=== PATIENT | male | born 1990 | race Caucasian/White ===

== ENCOUNTER 2025-06-09 15:15 | Outpatient (CLI) | payer OTHER, SELFPAY ==
--- OUTSIDE RECORDS SUMMARY | 2025-06-09 15:18 | XMS_ITS | Data Portability ---
Author Organization [facility] Address [address] [place] [address] Care Team Providers Care Electronics Inspector Name Role Phone GHAZAL ACKERMAN Primary Care Provider [phone] YADI MCCONNELL Title Inspector YADI HURTS General Surgeon NOLBERTO HURD [employer]at Sander MODESTO FU Supervisor [employer] Assessment Encounter Date Assessment Date Assessment LastModified by Organization Details LastModified Time 06/02/2025 06/02/2025 - 34-year-old ma kasandra with a history of Crohn's disease presenting for a follow-up visit and general checkup. - Metabolic dysfunction-associa summer steatotic liver disease: The patient has a known history of fatty liver disease, requiring periodic monitoring for fibrosis. - Acute low back pain: The patient's back pain has significantly improved, initially suspected to be muscular in origin. - Crohn's disease: The patient experiences significant gastrointestinal symptoms, impacting daily activities and contributing to disability claims. - Hammer toe and foot callus: The patient has structural foot issues causing pain, with surgery as a potential but uncertain solution. - Cellulitis: The patient is at risk for recurrent cellulitis, possibly due to immunosuppression from Crohn's treatment. - Pilonidal disease: The patient suffers from painful cysts and abscesses, affecting comfort and mobility. [email or web address] Not available 06/03/2025 08:47:51 Plan of Treatment Reminders Order Date Submit Date Provider Last Modified By Organization Details Last Modified Time Details Appointments None recorded. Lab hepatitis C liver status biomarker panel, serum 2024 025 [facility], [address] [place] [address], [id number], 04:55:04 CBC w/ auto diff 2024 025 [facility], [address] [place] [address], [address], 19:26:09 CMP, serum or plasma 2024 025 [facility], [address] [place] [address], [address], 19:42:26 TSH, serum or plasma 2024 025 [facility], [address] [place] [address], [address], 19:33:21 lipid panel, serum 2024 025 [facility], [address] [place] [address], [address], 19:42:27 hemoglobin A1C, fingerstick 2024 025 [email or web address] [facility], [address], [address], [place], [address], 08:50:14 Referral None recorded. Procedures None recorded. Surgeries None recorded. Imaging None recorded. Medication Orders rifampin 300 mg capsule 2024 025 [facility] [id number], [address] [place], [address], 05:02:23 amoxicillin 875 mg-potassiu m clavulanate 125 mg tablet 2024 025 [facility] [id number], [address] [place], [address], 05:01:47 rifampin 300 mg capsule 2024 [facility] [id number], [address] [place], [address], 05:02:23 amoxicillin 875 mg-potmiladys m clavulanate 125 mg tablet 2024 025 [facility] [id number], [address] [place], [address], 05:01:47 rifampin 300 mg capsule 2024 025 [facility] [id number], [address] [place], [address], 05:02:23 Patient TargetsNo targets recorded. Patient Instructions Encounter Date Encounter Id Patient Instructions Last Modified By Organization Details Last Modified Time 01/16/2025 [id number] Seen and examine d with Dr. Denys mace Not available 01/16/2025 10:32:42 01/22/2025 [id number] Seen and examine d with Dr. Denys mace Not available 01/22/2025 09:48:54 01/29/2025 [id number] - Continue takin g the prescribed antibiotics as directed. - Rest and avoid strain on the left leg. - Monitor the leg for any changes, such as increased redness, swelling, or warmth. - Contact the clinic if symptoms worsen or do not continue to improve. - Be cautious of frequent urination; this may be due to the antibiotics. - Follow general hygiene practices to prevent further skin infections. [email or web address] Not available 01/29/2025 11:43:13 During the visit , I discussed with the patient that the cellulitis of the left lower limb has shown significant improvement. The patient was advised to continue antibiotic therapy, and a prescription for an additional course of rifampin was provided to ensure complete resolution of the infection. I explained the potential for antibiotics to irritate the bladder, which might contribute to the frequent urge to urinate. We discussed the importance of staying off the affected limb to prevent exacerbation, and the patient acknowledged the need for caution despite work obligations. Follow-up was deemed unnecessary unless symptoms worsen or fail to resolve completely. The patient was advised to monitor for symptoms and contact the clinic if the condition does not improve. [email or web address] Not available 01/29/2025 11:43:13 06/02/2025 [id number] - Follow up with Dr. Clemons for Crohn's disease management. - Monitor for any signs of cellulitis and seek medical attention if symptoms recur. - Manage foot calluses carefully to prevent complications. - Consider dietary adjustments to manage Crohn's and diverticulitis symptoms. - Return for lab work to monitor liver function and metabolic health. [email or web address] Not available 06/02/2025 16:00:19 Yadi is an unfortunate 34-year-old male who has multiple physical problems including Crohn's disease that limits his ability to work. He has to take frequent bathroom breaks and something are very long. He has missed multiple days while he is having a flare of Crohn's. He is actively followed by his bundle cutter Lisa Clemons and under biologic treatment. Because of his biologic treatment that puts him at a risk of infection such as the recent cellulitis that he had on his leg that was quite severe. He also has various aches and pains that can also be debilitating. [email or web address] Not available 06/03/2025 08:49:57 Reason for Referral None Reported. Results Created Date Observation Date Name Description Value Unit Range Abnormal Flag Note LastModifiedBy Organization Detail LastModifiedTime 06/02/2006/02/2025 COMPL ETE BLOOD COUNT white blood cells 10.1 10*3/ uL 3.8-10 .8 normal Not Available [facility] [address] [place], [address], 06/02/2025 19:26:09 06/02/2006/02/2025 COMPL ETE BLOOD COUNT red blood cells 5.78 10*6/ uL 4.20-5 .80 normal Not Available [facility] [address] [place], [address], 06/02/2025 19:26:09 06/02/20 25 06/02/2025 COMPL ETE BLOOD COUNT hemoglobin 18.0 g/dL 14.0-1 8.0 normal Not Available [facility] [address] [place] [address], [address], 06/02/2025 19:26:06/02/2006/02/2025 COMPL ETE BLOOD COUNT hematocrit 51.8 % 40.0-5 2.0 normal Not Available [facility] [address] [place] [address], [address], 06/02/2025 19:26:06/02/20 25 06/02/2025 COMPL ETE BLOOD COUNT MCV 90 fL 80-100 normal Not Available [facility] [address] [place] [address], [address], 06/02/2025 19:26:06/02/2006/02/2025 COMPL ETE BLOOD COUNT MCH 31 pg 26-35 normal Not Available [facility] [address] [place] [address], [address], 06/02/2025 19:26:06/02/2006/02/2025 COMPL ETE BLOOD COUNT MCHC 35 g/dL 32-36 normal Not Available [facility] [address] [place] [address], [address], 06/02/2025 19:26:06/02/2006/02/2025 COMPL ETE BLOOD COUNT RDW 13.4 % 11.0-1 5.0 normal Not Available [facility] [address] [place] [address], [address], 06/02/2025 19:26:06/02/2006/02/2025 COMPL ETE BLOOD COUNT MPV 9.3 fL 6.2-10 .5 normal Not Available [facility] [address] [place] [address], [address], 06/02/2025 19:26:06/02/2006/02/2025 COMPL ETE BLOOD COUNT platelet count 249 10*3/ uL 150-40 0 normal Not Available [facility] [address] [place] [address], [address], 06/02/2025 19:26:06/02/2006/02/2025 COMPL ETE BLOOD COUNT neutrophil,a bsolute 5.8 10*3/ uL 1.6-8. 4 normal Not Available [facility] [address] [place] [address], [address], 06/02/2025 19:26:06/02/2006/02/2025 COMPL ETE BLOOD COUNT lymphocyte,a bsolute 3.3 10*3/ uL 0.4-5. 1 normal Not Available [facility] [address] [place] [address], [address], 06/02/2025 19:26:06/02/2006/02/2025 COMPL ETE BLOOD COUNT monocyte,abs olute 0.7 10*3/ uL 0.0-1. 2 normal Not Available [facility] [address] [place] [address], [address], 06/02/2025 19:26:06/02/2006/02/2025 COMPL ETE BLOOD COUNT eosinophil,a bsolute 0.2 10*3/ uL 0.0-0. 8 normal Not Available [facility] [address] [place] [address], [address], 06/02/2025 19:26:06/02/2006/02/2025 COMPL ETE BLOOD COUNT basophil,abs olute 0.2 10*3/ uL 0.0-0. 3 normal Not Available [facility] [address] [place] [address], [address], 06/02/2025 19:26:06/02/20 25 06/02/2025 COMPL ETE BLOOD COUNT % neutrophils 57.7 % 42.0-7 8.0 normal Not Available [facility] [address] [place] [address], [address], 06/02/2025 19:26:06/02/2006/02/2025 COMPL ETE BLOOD COUNT % lymphocytes 32.2 % 11.0-4 7.0 normal Not Available [facility] [address] [place] [address], [address], 06/02/2025 19:26:06/02/2006/02/2025 COMPL ETE BLOOD COUNT % monocytes 6.8 % 0.0-11 .0 normal Not Available [facility] [address] [place] [address], [address], 06/02/2025 19:26:06/02/2006/02/2025 COMPL ETE BLOOD COUNT % eosinophils 1.7 % 0.0-7. 0 normal Not Available [facility] [address] [place] [address], [address], 06/02/2025 19:26:06/02/2006/02/2025 COMPL ETE BLOOD COUNT % basophils 1.6 % 0.0-3. 0 normal Not Available [facility] [address] [place] [address], [address], 06/02/2025 19:26:06/02/2006/02/2025 COMPL ETE BLOOD COUNT nucleated red cells 0.1 % 0.0-0. 9 normal Not Available [facility] [address] [place] [address], [address], 06/02/2025 19:26:06/02/2006/02/2025 COMPL ETE BLOOD COUNT nucleated RBCs, absolute 0.01 10*3/ uL not estab. normal Not Available [facility] [address] [place] [address], [address], 06/02/2025 19:26:06/02/2006/02/2025 TSH TSH 2.440 u[IU] /mL 0.270- 4.200 normal Not Available [facility] [address] [place] [address], [address], 06/02/2025 19:33:21 06/02/20 25 06/02/2025 COMP. METAB OLIC PANEL glucose 87 mg/dL 74-100 normal Not Available [facility] [address] [place] [address], [address], 06/02/2025 19:42:26 06/02/20 25 06/02/2025 COMP. METAB OLIC PANEL blood urea nitrogen 11 mg/dL 6-20 normal Not Available [facility] [address] [place] [address], [address], 06/02/2025 19:42:26 06/02/20 25 06/02/2025 COMP. METAB OLIC PANEL creatinine 1.11 mg/dL 0.70-1 .20 normal Not Available [facility] [address] [place] [address], [address], 06/02/2025 19:42:26 06/02/20 25 06/02/2025 COMP. METAB OLIC PANEL BUN/creatini ne ratio 10 (calc ) 10-20 normal Not Available [facility] [address] [place] [address], [address], 06/02/2025 19:42:26 06/02/20 25 06/02/2025 COMP. METAB OLIC PANEL sodium 138 mmol/ L 136-14 5 normal Not Available [facility] [address] [place] [address], [address], 06/02/2025 19:42:26 06/02/2006/02/2025 COMP. METAB OLIC PANEL potassium 4.9 mmol/ L 3.4-5. 0 normal Not Available [facility] [address] [place] [address], [address], 06/02/2025 19:42:26 06/02/20 25 06/02/2025 COMP. METAB OLIC PANEL chloride 100 mmol/ L 98-107 normal Not Available [facility] [address] [place] [address], [address], 06/02/2025 19:42:26 06/02/20 25 06/02/2025 COMP. METAB OLIC PANEL carbon dioxide 25 mmol/ L 22-31 normal Not Available [facility] [address] [place] [address], [address], 06/02/2025 19:42:26 06/02/20 25 06/02/2025 COMP. METAB OLIC PANEL anion gap 13 (calc ) 7-25 normal Not Available [facility] [address] [place] [address], [address], 06/02/2025 19:42:26 06/02/20 25 06/02/2025 COMP. METAB OLIC PANEL calcium 10.5 mg/dL 8.6-10 .2 high Not Available [facility] [address] [place] [address], [address], 06/02/2025 19:42:26 06/02/20 25 06/02/2025 COMP. METAB OLIC PANEL total protein 7.8 g/dL 6.4-8. 3 normal Not Available [facility] [address] [place] [address], [address], 06/02/2025 19:42:26 06/02/20 25 06/02/2025 COMP. METAB OLIC PANEL albumin 4.5 g/dL 3.5-5. 2 normal Not Available [facility] [address] [place] [address], [address], 06/02/2025 19:42:26 06/02/20 25 06/02/2025 COMP. METAB OLIC PANEL globulin 3.3 1.5-4. 5 normal Not Available [facility] [address] [place] [address], [address], 06/02/2025 19:42:26 06/02/20 06/02/2025 COMP. METAB OLIC PANEL albumin/glob ulin ratio 1.4 (calc ) 1.1-2. 5 normal Not Available [facility] [address] [place], [address], 06/02/2025 19:42:26 06/02/20 25 06/02/2025 COMP. METAB OLIC PANEL bilirubin, total 0.9 mg/dL 0.1-1. 0 normal NOTE: New refer ence range . Not Available [facility] [address] [place], [address], 06/02/2025 19:42:26 06/02/2006/02/2025 COMP. METAB OLIC PANEL alkaline phosphatase 83 U/L 40-129 normal Not Available [facility] [address] [place], [address], 06/02/2025 19:42:26 06/02/2006/02/2025 COMP. METAB OLIC PANEL AST 57 U/L 0-40 high Not Available [facility] [address] [place], [address], 06/02/2025 19:42:26 06/02/20 25 06/02/2025 COMP. METAB OLIC PANEL ALT 88 U/L 0-41 high Not Available [facility] [address] [place], [address], 06/02/2025 19:42:26 06/02/2006/02/2025 COMP. METAB OLIC PANEL eGFR 89 >= 60 normal NOT E New calcu latio n for GFR (CKD- EPI 2020) is formu lated witho ut race adjus tment facto rs at the recom menda tion of the Renae Blair y Rupinder leal and Trisha Pascual ty of Nephr ology . This calcu latio n has not been valid ated in pregn ant women . For pedia azalia moraese nts refer to https ://dwain rock.o rg/pr ofess ional s/KDO QI/gf r_cal culat orPed Not Available [facility] [address] [place], [address], 06/02/2025 19:42:26 06/02/20 25 06/02/2025 LIPID PROFI LE HDL cholesterol 35 mg/dL low VINNIE L RANGE FEMAL E >49 MALE >39 NOTE: NEW VINNIE L RANGE Not Available [facility] [address] [place], [address], 06/02/2025 19:42:27 06/02/20 25 06/02/2025 LIPID PROFI LE triglyceride s 438 mg/dL 0-149 high TRIGL YCERI DE RANGE S VINNIE L: < 150 BORDE RLINE HIGH: 150 - 199 HIGH: 200 - 499 VERY HIGH: > OR = 500 Not Available [facility] [address] [place], [address], 06/02/2025 19:42:27 06/02/20 25 06/02/2025 LIPID PROFI LE cholesterol 223 mg/dL 0-199 high SHABBIR STERO L (TOTA L) RANGE S FREDY ABLE: < 200 BORDE RLINE : 200 - 239 HIGHE R RISK: > 239 Not Available [facility] [address] [place], [address], 06/02/2025 19:42:27 06/02/20 25 06/02/2025 LIPID PROFI LE LDL cholesterol - mg/dL _(ashlie c) 0-99 abnormal Trigl yceri de resul t is > 400. LDL canno t be calcu lated . LDL SHABBIR STERO L RANGE S OPTIM AL: < 100 NEAR/ ABOVE OPTIM AL: 100 - 129 BORDE RLINE HIGH: 130 - 159 HIGH: 160 - 189 VERY HIGH: > OR = 190 Not Available [facility] [address] [place], [address], 06/02/2025 19:42:27 06/02/20 25 06/02/2025 LIPID PROFI LE chol/HDL ratio (calc) 6.4 mg/dL normal NO VINNIE L RANGE ESTAB LISHE D FOR SHABBIR STERO L/HDL RATIO (CALC ULATE D). Not Available [facility] [address] [place], [address], 06/02/2025 19:42:27 06/02/20 25 06/02/2025 LIPID PROFI LE LDL, direct 137 0-99 high Not Available [facility] [address] [place], [address], 06/02/2025 19:42:27 06/02/20 25 06/03/2025 ALEXANDER FIBRO SURE alexander fibrosis score -2.604 normal Not Available [facility] [address] [place], [address], 06/03/2025 10:54:07 06/02/20 25 06/03/2025 ALEXANDER FIBRO SURE interpretati on SEE NOTE normal NAFLD Fibro sis Score less than -1.45 5: Consi stent with the absen ce of signi fican t fibro sis. Refer ence: Johana georges P, Jonelle JM, November afsaneh G, Gibson telles E, Espinoza mccoy J, Philip goins GC, Ozzie s F, Sakse na S, Ace DA, et al. The NAFLD fibro sis score : a nonin vasiv e syste m that ident ifies liver fibro sis in patie nts with NAFLD . HEPAT OLOGY 2007; 45:84 6-854 . If fasti ng condi tions were not met, use cauti on when inter preti ng the gluco se test resul t and the NAFLD Fibro sis Score . Not Available [facility] [address] [place], [address], 06/03/2025 10:54:07 06/02/20 25 06/03/2025 ALEXANDER FIBRO SURE glucose 87 mg/dL 65-99 normal Fasti ng refer ence inter mary Not Available [facility] [address] [place], [address], 06/03/2025 10:54:07 06/02/20 25 06/03/2025 ALEXANDER FIBRO SURE AST 51 U/L 10-40 high Not Available [facility] [address] [place] [address], [address], 06/03/2025 10:54:07 06/02/20 25 06/03/2025 ALEXANDER FIBRO SURE ALT 79 U/L 9-46 high Not Available [facility] [address] [place] [address], [address], 06/03/2025 10:54:07 06/02/20 25 06/03/2025 ALEXANDER FIBRO SURE platelet count 276 thous and/u L 140-40 0 normal Not Available [facility] [address] [place] [address], [address], 06/03/2025 10:54:07 06/02/20 25 06/03/2025 ALEXANDER FIBRO SURE albumin 4.8 g/dL 3.6-5. 1 normal Not Available [facility] [address] [place] [address], [address], 06/03/2025 10:54:07 06/02/20 25 06/03/2025 ALEXANDER FIBRO SURE calculated BMI 42.2 normal Not Available [facility] [address] [place], [address], 06/03/2025 10:54:07 06/02/20 25 06/02/2025 hemog lobin A1C, finge rstic k hemoglobin A1C % 5.3 4.0 - 5.6 Not Available [address], [place], [address], 06/02/2025 15:13:21 01/15/20 25 01/14/2025 US, chaparro x, ariana s, [facility] mity, unila teral No observ ation record ed. [facility] [address] [place] [address] , [place], [address], 01/14/2025 13:47:40 Result Notes None recorded. Problems Name Problem SNOMED Code Status Onset Date Resolution Date Notes Provider Name and Address Organization Details Recorded Time Crohn's disease of large bowel 3504075 Active 2014 From [employer];Pro vider: Edmar Clemons;Sta tus: Active SANDRA ACKERMAN MD [address] [place] [address], [address] , [facility] 5 15:44:17 Liver function tests outside referenc e range 650902103 Active 2014 From [employer];Pro vider: Edmar Clemons;Sta tus: Active Not Available [facility] 6 04:59:02 Metaboli c dysfunct ion-asso ciated steatohe patitis 222817922 Active 2014 From [employer];Pro vider: Edmar Clemons;Sta tus: Active SANDRA ACKERMAN MD [address] [place] [address], [address] , [facility] 5 15:44:24 Pharyngi tis 113285318 Completed 201403/17/2019 From [employer];Pro vider: Yair Matson;Statu s: Active SANDRA ACKERMAN MD [address] [place] [address], [address] , [facility] 9 10:04:33 Single major depressi ve episode, moderate Active 2015 From [employer];Pro vider: Yair Matson.;Statu s: Active Not Available [facility] 6 04:59:38 Disorder of penis 72481693 Completed 201503/17/2019 From [employer];Pro vider: Yair Matson.;Statu s: Active SANDRA ACKERMAN MD [address] [place] [address], [address] , [facility] 9 10:04:31 Crohn's disease of small intestin e 35009870 Active 2015 From [employer];Pro vider: Edmar Clemons;Sta tus: Active SANDRA ACKERMAN MD [address] [place] [address], [address] , [facility] 15:44:10 Male pattern alopecia 05788103 Active 2024 Vianey degroot, [facility] 5 09:56:16 Notes:: Depression Screening* Date:01/17/2016 Problem Notes Documentation Provider Name and Address Organization Details Recorded Time First [employer] Sander Consult Note : [facility] [address] [facility] [address]NEJX, Michael (id #[id number], : 1990) [facility] [address] [place] [address] Date: 02/06/2025RE: Yadi Hickey, : 1990, PT ID #[id number] Ackerman MD, I would like to thank you for referring Yadi Hickey to our practice for consultation and evaluation. I have enclosed a copy of the office evaluation for your records. Sincerely, Electronically Signed by: DAMION GARDNER PA-C, Kathleen Reason/DateNone recorded 02/04/2025 - 09:30AM - [facility] History of Present IllnessPatient is here to follow up on telogen effluvium Duration: MonthsTx tried: No medications taken in the pastReports:- Patient wants to see his options for treatment- Previous note states that Discussed SE of decr libido/mood in ~10%. in regards to finasteride- Patient reports he doesn't want to take a medication that dec libidoReview of SystemsROS as noted in the HPIPhysical ExamConstitutional: Patient is in no apparent distress and appears in good general health Neurological: Alert and oriented to person, place, and time Psychiatric: Pleasant and cooperative Skin exam was performed in only the following areas: scalp The areas examined include: Thinning of vertex scalp hairProcedure DocumentationNone recordedAssessment/Plan1.Ot her androgenic alopeciaPt first noticed hair lossStarted Humira ~ 10yrs ago, unsure if this is relatedPrior labs showed low Vit D, has been taking a Vit D supplementPt prefers to h/o on on finasteride d/t SE's of decreased libido Discussed genetic component to hair loss. Discussed that there aren't great treatments for this. Recommended starting minoxidil 5% (Rogaine) BID to scalp. Discussed that Rogaine must be consistently used to maintain results, and if stopped, hair loss will revert to as if it hadn't been used. Must take for 6-12 months for results to show.Follow up in 6moL64.8: Other androgenic alopecia Return to Office to see NOLBERTO FERGUSON MD at [facility] on or around 08/06/2025 SANDRA ACKERMAN MD [address] [place] [address], [address], [facility] 02/06/2025 13:31:21 Procedures Surgical History Date Name Laterality Status Provider Name and Address Organization Details Recorded Time Colonoscopy completed Sabrina Peter [facility] 02/20/2017 15:44:08 excision of cyst completed Dezjack Prince [facility] 02/04/2025 09:31:13 Imaging Results None recorded. Procedure Notes None recorded. Medical Equipment None Reported. Allergies Allergen ID Allergen Name Allergen Category Reaction Reaction Severity Criticality Documentation Date Start Date Code Code System Note Provider Name and Address Organization Details Recorded Time 394525 Advil medicatio n other Not available Not available 07/28/20162014 90582 0 RxNorm React ion: BLIST ER OF SKIN; Comme nt: Creat ed By: Carmencita wheeler Date: 015 10:50 :49 AM; Not Available [employer] 6 10:02:09 891134 ibuprofen medicatio n Not available Not available Not available 08/15/2024 5640 Rx[facility] 4 10:20:36 Medications Name Sig Start Date Stop Date Status Note LastModified by Organization Details LastModified Time doxycycli ne hyclate 100 mg capsule Take 1 capsule twice a day by oral route for 14 days. 10/20 completed Not Available Not Available Not Available Keflex 500 mg capsule Take 1 capsule every 8 hours by oral route for 10 days. 03/17 completed Not Available Not Available Not Available Pyridium 100 mg tablet Take 1 tablet 3 times a day by oral route. 03/25 completed Not Available Not Available Not Available ciproflox acin 500 mg tablet Take 1 tablet every 12 hours by oral route for 21 days. 12/14 completed Not Available Not Available Not Available rifampin 300 mg capsule Take 1 capsule 3 times a day by oral route for 10 days. 02/02 completed Not Available Not Available Not Available amoxicill in 875 mg tablet Two times a day 02/20 completed Not Available Not Available Not Available hyoscyami ne ER 0.375 mg tablet,ex tended release,1 2 hr Take 1 tablet every 12 hours by oral route. 2023 active Not Available Not Available Not Avai lable dicyclomi ne 20 mg tablet TAKE ONE TABLET BY MOUTH FOUR TIMES A DAY BEFORE MEALS 03/17 completed Not Available Not Available Not Available neomycin- polymyxin -dexameth 3.5 mg/mL-10, 000 unit/mL-0 .1% eye drops one drop left eye 4 times a day for 2 weeks 10/20 completed Not Available Not Available Not Available mercaptop urine 50 mg tablet Daily 03/17 completed Not Available Not Available Not Available clobetaso l 0.05 % topical ointment APPLY A THIN LAYER TO THE AFFECTED AREA(S) BY TOPICAL ROUTE 2 TIMES PER DAY FOR 2 WEEKS 2023 active Not Available Not Available Not Avai lable Zoloft 100 mg tablet Daily 02/20 completed Not Available Not Available Not Available vitamin E 268 mg (400 unit) capsule Daily 03/25 completed Not Available Not Available Not Available amoxicill in 875 mg-potass ium clavulana te 125 mg tablet Take 1 tablet every 12 hours by oral route for 7 days. 02/12 completed Not Available Not Available Not Available tobramyci n 0.3 %-dexamet hasone 0.1 % eye drops,andrae pension one drop left eye 4 times a day for 14 days 02/02 completed Not Available Not Available Not Available oxycodone 5 mg tablet Take 1 tablet every 4 hours by oral route as needed. 01/13 completed Not Available Not Available Not Available Bactrim DS 800 mg-160 mg tablet Take 1 tablet every 12 hours by oral route for 5 days. 01/13 completed Not Available Not Available Not Available Humira 40 mg/0.8 mL subcutane ous syringe kit Inject 0.8 ml under the skin once every 14 days as directed for Crohns active Not Available Not Available No t Available bupropion HCl XL 300 mg 24 hr tablet, extended release Take 1 tablet every day by oral route. 03/24 completed Not Available Not Available Not Available bupropion HCl XL 150 mg 24 hr tablet, extended release Take 1 tablet every day by oral route. 03/24 completed Not Available Not Available Not Available rifampin 06/02 completed Not Available Not Available Not Available Humira Pen 40 mg/0.8 mL subcutane ous kit Inject by subcutan eous route for 28 days. active Not Available Not Available No t Available Zofran (base) As needed 03/17 completed Frequenc y: prn;Medi cation Descript ion: ondanset jimmy; Dosage:a s directed ; refills: 0 Not Available Not Available Not Available Humira(CF ) Pen 40 mg/0.4 mL subcutane ous kit Inject 0.4 ml under the skin once every 14 days as directed 09/15 completed PA approved for 40 mg/0.8 ml Not Available Not Available Not Available Humira(CF ) Pen 80 mg/0.8 mL subcutane ous kit Inject 0.8 ml under the skin once every x14 days as directed for Crohn's 09/17 completed PA approval letter on file Not Available Not Available Not Available Senna Plus 8.6 mg-50 mg capsule Take 1 capsule every day by oral route for 7 days. 01/13 completed Not Available Not Available Not Available Amjevita( CF) 40 mg/0.8 mL subcutane ous syringe Inject 0.8 ml under the skin once every 14 days as directed 09/22 completed Humira PA was approved , but [employer] stated not covered and must change to Amjevita intercha ngeable. Then stated Pen not covered, need syringes . Syringes order given and now request for change to 40 mg/0.4 ml. Not Available Not Available Not Available Amjevita( CF) Autoinjec tor 40 mg/0.8 mL subcutane ous auto-inje ctor Inject 0.8 ml under the skin by subcutan eous route once every 14 days, as directed 09/19 completed Humira PA was approved , but [employer] stated not covered and must change to Amjevita intercha ngeable. Then stated Pen not covered, need syringes . Injectio n delayed. Not Available Not Available Not Available Amjevita( CF) 20 mg/0.4 mL subcutane ous syringe Inject 0.4 ml under the skin once every 14 days as directed 01/13 completed Not Available Not Available Not Available Amjevita( CF) 40 mg/0.4 mL subcutane ous syringe Inject 0.4 mL every 2 weeks by subcutan eous route for 28 days. active VO called to Ketty garcia, pharmJohn Cooper per their request. x11 RF's. Not Available Not Available Not Available Vitals Date Recorded Body height Body mass index (BMI) Body weight Body temperature Heart rate Oxygen saturation Oxygen saturation in Arterial blood by Pulse oximetry Systolic And Diastolic Provider Name and Address Organization Details Last Updated DateTime 5 200.66 cm 41.1 kg/m2 467081. 22 g 97.7 [degF] 78 /min 95 % 95 % 130/80 mm[Hg] Martha Morel [facility] 5 10:19:45 Date Recorded Body height Body mass index (BMI) Body weight Heart rate Oxygen saturation Oxygen saturation in Arterial blood by Pulse oximetry Body temperature Systolic And Diastolic Provider Name and Address Organization Details Last Updated DateTime 5 200.66 cm 40.8 kg/m2 568563. 44 g 80 /min 98 % 98 % 98.4 [degF] 124/82 mm[Hg] Andreina Rodriguez [facility] 5 09:35:31 Date Recorded Body height Body mass index (BMI) Body weight Body temperature Heart rate Oxygen saturation Oxygen saturation in Arterial blood by Pulse oximetry Systolic And Diastolic Provider Name and Address Organization Details Last Updated DateTime 5 200.66 cm 40.9 kg/m2 459300. 73 g 97.9 [degF] 93 /min 96 % 96 % 110/70 mm[Hg] Martha Maria Teresa [facility] 5 11:18:17 Date Recorded Body height Body mass index (BMI) Body weight Body temperature Oxygen saturation Oxygen saturation in Arterial blood by Pulse oximetry Heart rate Systolic And Diastolic Provider Name and Address Organization Details Last Updated DateTime 5 200.66 cm 42.2 kg/m2 515762. 14 g 98 [degF] 96 % 96 % 94 /min 143/75 mm[Hg] Herlinda Molina [facility] 5 15:11:03 Social History Question Answer Notes LastModified by Organizat ion Details LastModified Time Tobacco Smoking Status Current Every [facility] 02/20/2017 15:43:29 How Much Tobacco Do You Chew? None Information not available 03/17/2019 What Was The Date Of Your Most Recent Tobacco Screening? 10/20/2022 [email or web address] Information not available 10/20/2022 What Is Your Current Pack Years? 10-19packyea rs Information not available 10/23/2022 At What Age Did You Start Smoking Tobacco? 15 Information not available 02/20/2017 Are You Passively Exposed To Smoke? Yes Information not available 02/20/2017 How Much Tobacco Do You Smoke? 1 PPD Information not available 11/24/2022 Has Tobacco Cessation Counseling Been Provided? Yes [email or web address] Information not available 03/17/2019 On What Date Was Tobacco Cessation Counseling Provided? 10/20/2022 Information not available 10/20/2022 How Many Years Have You Smoked Tobacco? 17 Information not available 10/23/2022 Sex: Male Functional Status Question Answer Note LastModified by Organizat ion Details LastModified Time Do you or have you ever used smokeless tobacco? Never used smokeless tobacco Information not available 07/23/2019 Do you or have you ever used e-cigarettes or vape? Never used electronic cigarettes Information not available 07/23/2019 Mental Status None recorded. Family History Relationship Description Onset Age of this Age Resolved Age Notes LastModified by Organization Details LastModified Time Unspecified Relation Dementia [email or web address] Not available 2016 15:42:50 Father Heart disease [email or web address] Not available 2022 09:13:30 Father Hypercholest erolemia [email or web address] Not available 2016 15:43:09 Father Hypertensive disorder [email or web address] Not available 2016 15:43:16 Father Diabetes mellitus [email or web address] Not available 2022 09:13:18 Father Kidney stone Not availa ble 11/24/2022 09:13:52 Medical History Condition Response Autoimmune disease Y Skin Cancer N Allergies/Hayfever Y GI Problems Y Past Encounters Encounter ID Performer Location Encounter Start Date Encounter Closed Date Diagnosis/Indication Diagnosis SNOMED-CT Code Diagnosis ICD10 Code Diagnosis IMO Codes Diagnosis Note [id number] SANDRA ACKERMAN MD [facility] [address] [place] [address] 02/20/2017 14:42:59 02/20/2017 16:23:57 Crohn's disease of small intestine 35748613 K50.00 continue humira Hidradenit is suppurativa 32902738 L73.2 Obesity 153092123 E66.9 [id number] SANDRA ACKERMAN MD [facility] [address] [address] 03/17/2019 09:28:27 03/17/2019 11:03:05 Body mass index 30+ - obesity 795989925 Z68.34 Venereal d isease screening 580574287 Z11.3 discussed that even with normal exam recommend STD testing. [id number] SANDRA ACKERMAN MD [place] [address] [address] 07/23/2019 10:25:03 07/23/2019 11:35:39 Body mass index 30+ - obesity 885225174 Z68.36 Acute prostatitis 948298 02 N41.0 likely dx will treat with 3 weeks with cipro. Will reassess in 3 weeks if not better. Sooner if needed. [id number] SANDRA ACKERMAN MD [place] [address] [address] 03/25/2020 10:01:23 03/25/2020 12:32:17 Crohn's disease of small intestine 27995979 K50.00 continue humira Follow up with his GI [id number] SANDRA ACKERMAN MD [place] [address] [address] 08/31/2020 15:48:13 09/01/2020 14:51:09 Chalazion of lower eyelid 650380980 H00.19 Left lower lid [id number] YADI MCCONNELL MD [facility] [address] [address] 09/17/2020 10:57:11 09/17/2020 17:01:38 Meibomian gland dysfunction 691840181 H02.889 rec docycyclin e 100mg bid x 14 days rec tdex qid x 14 days hot compresses bid-qid if not better in 2-3 weeks rtc for injection vs i/d [id number] YADI MCCONNELL MD [facility] [address] [address] 02/02/2022 08:11:30 02/02/2022 10:20:13 Internal hordeolum 611235143 H00.029 doxycyclin e 100mg bid x 14 daysnpd qid os x 14 dayshot compresses qid [id number] SANDRA ACKERMAN MD [place] [address] [place] [address] 10/20/2022 08:43:31 10/20/2022 09:20:50 Acute prostatitis 93567973 N41.0 likely dx will treat with 3 weeks with cipro. Will reassess in 3 weeks if not better. Sooner if needed. Bereavement 66486548 Z63 .4 He has significan t bereavemen t over his father. He has had a long-term low-grade depression that he has declined treatment for. He has agreed to seek bereavemen t counseling through hospice. We have provided him with the informatio n to make that appointmen t Hammer toe 453999897 M20 .42 M20.41 Will refer to podiatry, I wonder if he is developing neuropathy . Podiatry consult should help us with this. Adult [facility] th examination 355570384 Z00.00 He needs routine lab work. [id number] SANDRA ACKERMAN MD [facility] [address] [place], [place] [address] 11/17/2022 09:49:58 11/17/2022 11:16:29 Acute prostatitis 17213824 N41.0 likely dx will treat with 3 weeks with cipro. Finish abx Bereavement 06038338 Z63 .4 He has been improved but not well. He has no side effects. Liver enzy mes level above reference range 094140668 R74.01 advised reduce ETOHNow down to 4 drinks a week 2-3 shots 4 times a week Abscess of skin and/or subcutaneous tissue 10926136 L02.91 Left buttock , draining on abxSine he has crohns needs to see surgeon to assess for fistula [id number] YADI HURST MD [facility] [address] [place] [address] 11/24/2022 08:51:17 11/27/2022 16:20:41 Abscess of buttock 46132547 L02.31 [id number] SANDRA ACKERMAN MD [facility] [address],[place] [address] 03/24/2024 11:19:22 03/24/2024 12:27:47 Crohn's disease 26463086 K50.90 He has need for a new gi docHe has recurrent diarrheaI did fmla forms for him.She has no weight loss.He has been on humrira Hidradenit is suppurativa 51066876 L73.2 Will treat as below [id number] NOLBERTO FERGUSON MD [place] [address] [place] [address] 04/01/2024 07:58:26 04/01/2024 12:02:10 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 Will r/o vitamin def/TE in the setting of Crohn's disease.- Labs to be checked as below- Start finasterid e 1mg QD if all screening labs for TE WNL. Discussed SE of decr libido/moo d in ~10%. F/Up 6 mo [id number] MODESTO FU MD [facility] [address] [facility] [address] [place] [address] 08/06/2024 13:32:26 08/06/2024 14:18:40 Crohn's disease of large bowel 8275606 K50.10 humira used to be on 6mplevsin helps with day to day symptoms Crohn's di sease of small intestine 73771706 K50.00 Liver func tion tests outside reference range 344695739 R94.5 Metabolic dysfunction-associate d steatohepatitis 513007589 K75.81 History of intestinal infection caused by Clostridioides difficile 8924410782 89710 Z86.19 [id number] YADI HURST MD [facility] [address] [place] [address] 08/15/2024 10:12:21 08/20/2024 12:38:32 Anal fistula 251781400 K60.312 Pilonidal disease 862290 009 L98.8 [id number] YADI HURST MD [facility] [address] [place] [address] 10/06/2024 10:11:00 10/06/2024 10:13:37 Postoperative pain 126889855 G89.18 [id number] YADI HURST MD [facility] [address] [address] 10/24/2024 08:37:00 10/28/2024 12:25:01 Pilonidal disease 730896932 L98.8 [id number] YADI HURST MD [facility] [address] [address] 11/28/2024 08:47:05 11/30/2024 09:28:37 Pilonidal disease 231845993 L98.8 [id number] SANDRA ACKERMAN MD [facility] [address] [address] 01/13/2025 08:36:23 01/13/2025 10:04:43 Cellulitis of left lower limb 4747734294 0309600 L03.129 [id number] Advised pt to take antibiotic with food. Will schedule follow up for Sunday to recheck progressio n of treatment. Advised patient to follow up sooner if symptoms worsen. Will further investigat e with US to rule out DVT. [id number] SANDRA ACKERMAN MD [facility] [address] [facility] [place] [address] 01/16/2025 09:32:11 01/16/2025 10:52:02 Cellulitis of left lower limb 5325648218 5927213 L03.933 2210369 Mildly improved appearance of leg at today's visit. No worsening redness, swelling, warmth, or spread. Advised pt to continue taking antibiotic with food. Will add rifampin to treatment plan at this time. Advised pt that rifampin may give a red tint to bodily fluids. Advised pt elevate leg. Recommend following up with patient in one week to check progressio n. [id number] SANDRA ACKERMAN MD [facility] [address] [place] [address] 01/22/2025 09:30:42 01/22/2025 10:06:03 Cellulitis of left lower limb 7042518924 5985834 L03.039 1290376 Significan tly less swelling and warmth of left leg, redness has lessened as well. No spread above the knee. Advised pt to continue taking antibiotic with food. Will extend both courses of antibiotic s by another 10 days. Advised pt elevate leg as much as possible. Recommende d NSAIDs to help with pain. [id number] SANDRA ACKERMAN MD [address] [place], [place] [address] 01/29/2025 10:30:20 01/29/2025 11:42:39 Cellulitis of left lower limb 5095405466 6212847 L03.448 3139094 - Continue antibiotic therapy with amoxicilli n and commence rifampin to ensure complete resolution .- Monitor for further improvemen t, with expectatio ns for continued reduction in swelling and erythema.- Instructed the patient to avoid excessive physical activity to prevent aggravatio n.- Advised to observe for any new symptoms or lack of improvemen t, which may necessitat e further medical evaluation . 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 Discussed that there aren't great treatments for this. Recommende d starting minoxidil 5% (Rogaine) BID to scalp. Discussed that Rogaine must be consistent ly used to maintain results, and if stopped, hair loss will revert to as if it hadn't been used. Must take for 6-12 months for results to show.Follo w up in 6mo [id number] SANDRA ACKERMAN MD [facility] [address] [place] [address] 06/02/2025 14:31:55 06/02/2025 15:59:02 Metabolic dysfunction-associate d steatotic liver disease 2862453142 K76.0 [id number] - Plan to conduct a FibroSure test to screen for liver fibrosis. - Monitor liver function and metabolic profile regularly. Adult heal th examination 163384588 Z00.00 [id number] He needs routine lab work. Acute low back pain 2788 21303 M54.50 48888212 - No specific interventi on required as the pain has eased significan tly. Crohn's di sease of small intestine 85289341 K50.00 - Follow-up with Dr. Clemons for ongoing management of Crohn's disease.- Address dietary management challenges due to conflictin g needs of Crohn's and diverticul itis. Hammer toe 093742627 M20 .41 M20.42 01889861 - Consider surgical interventi on as discussed with environmental compliance specialist , though outcomes are uncertain. Foot callus 284566390 L8 4 471973 - Manage calluses carefully to prevent ulceration . History of cellulitis 47 0869433 Z87.2 [id number] He is currently without signs and symptoms of cellulitis in the legs. We discussed the need to monitor for this. History of skin disorder 924725331 Z87.2 [id number] He is currently without signs and symptoms of pilonidal disease. We discussed that these can be recurrent Health Concerns Section Related Observation LastModified by Organization Detai ls LastModified Time None Recorded Concern Status LastModified by Organization Details LastModified Time None Recorded Advance Directives Directive None Recorded Payers Insurance Date Sequence Insurance Name Policy Number Policy Lopez Covered Member ID Lopez Member ID Guarantor Name 06/04/2025 1 [employer] [id number] Yadi Hickey [id number] Yadi Hickey 11/19/2020 GENERIC INSURANCE - MOVED-HOLD Yadi Hickey 02/20/2017 1 *SELF PAY* Lali Hickey 11/19/2020 1 [employer] - [employer] [place] (MEDICAID REPLACEMENT - HMO) [place] Yadi Hickey [id number] Yadi Hickey Notes Date Note Type Note Provider Name and Address Organization Details Recorded Time 01/16/2025 text/html Pt is here for follow up of cellulitis. He states the pain is about the same, but that the swelling gone down. He denies fever, chills, nausea, vomiting. He denies any side effects from the augmentin other than some mild constipation. He reports the area is irritated by use of his work boot and notices an increase in ankle swelling but denies any other worsening in symptoms. MD [place], [address], [facility] 01/19/2025 07:55:35 01/22/2025 text/html Pt is here today for follow up on cellulitis of the left leg. He has been on augmentin x 9 days and rifampin x 5 days. He reports side effects of dizziness, urinary urgency, change in urine and stool color. He is still having the same level of pain btk on the left. He denies fever, chills, spread of redness, pain elsewhere. SANDRA ACKERMAN MD [facility] [place], [address], [facility] 01/29/2025 11:36:41 01/29/2025 text/html - The patient is a 34-year-old male presenting with cellulitis follow-up. - Initially diagnosed with cellulitis of the left lower limb. - The patient reports the condition has improved significantly since the last visit. - Symptoms initially included erythema, tenderness, swelling, and warmth in the affected area. - The patient reports the skin is peeling like a sunburn, and the area is less erythematous with reduced swelling. - Initially prescribed amoxicillin; the patient completed nearly the full course. - Reports mild itchiness, tenderness, and soreness in the affected area. - No additional medical history, family history, or social history impacting the cellulitis is provided. SANDRA ACKERMAN MD [facility] [place], [address], [facility] 01/29/2025 15:41:57 02/04/2025 text/html ROS as noted in the HPI Patient is here to follow up on telogen effluvium Duration: MonthsTx tried: No medications taken in the pastReports:- Patient wants to see his options for treatment- Previous note states that Discussed SE of decr libido/mood in ~10%. in regards to finasteride- Patient reports he doesn't want to take a medication that dec libido DAMION GARDNER PA-C [address] [place], [address], [facility] 02/06/2025 10:53:24 06/02/2025 text/html - The patient is a 34-year-old male presenting for a follow-up visit and general checkup. - Acute low back pain: The patient experienced back pain a few weeks ago, initially thought to be a pulled muscle, which was sore for several weeks. - The pain was localized to the mid-back and has since eased significantly. - Crohn's disease: The patient has a history of Crohn's disease and is scheduled to see Dr. Clemons for follow-up. - The patient experiences abdominal pain and frequent bowel movements, sometimes lasting up to an hour. - Hammer toe and foot issues: The patient has hammer toes and high arches, causing stinging pain after a few hours of activity. - The patient has seen a environmental compliance specialist who suggested surgery as a potential solution, though not guaranteed. - Foot callus: The patient has preulcerative calluses on both great toes, requiring careful management. - Cellulitis: The patient has a history of cellulitis, which may recur due to a weakened immune system from Crohn's medication. - Pilonidal disease: The patient experiences painful cysts and abscesses, making sitting difficult. Documentation on this patient encounter was supported using voice-enabled Al technology. The patient consented to recording for the purpose of documenting the encounter. Provider reviewed content of the generated note prior to signature. SANDRA ACKERMAN MD [address] [place], [address], [facility] 06/03/2025 08:50:19
--- OUTSIDE RECORDS SUMMARY | 2025-06-09 15:18 | XMS_ITS | Continuity of Care Document ---
Author Organization SARAY Carl Manriquez c, [facility] Address [address] [place] [address] Care Team Providers Care Instrument Adjuster Name Role Phone GHAZAL ACKERMAN Primary Care Provider [phone] YADI MCCONNELL Admitting Manager YADI HURST General Surgeon O NOLBERTO FERGUSON Electrical Logging Engineer MODESTO FU Histology Tech [phone] Assessment Encounter Date Assessment Date Assessment LastModified [...] cysts and abscesses, affecting comfort and mobility. Not available 06/03/2025 08:47:51 Plan of Treatment Reminders Order Date Submit Date Provider Last Modified By Organization Details Last Modified Time Details Appointments None recorded. Lab hepatitis C liver status biomarker panel, serum 2024 025 [facility], [address] [place] [address], [id number], 04:55:04 CBC w/ auto diff 2024 025 [facility], [address] [place] [address], [id number], 19:26:09 CMP, serum or plasma 2024 025 [facility], [address] [place] [address], [id number], 19:42:26 TSH, serum or plasma 2024 025 [facility], [address] [place] [address], [address], 19:33:21 lipid panel, serum 2024 025 [facility], [address] [place] [address], [id number], 19:42:27 hemoglobin A1C, fingerstick 2024 025 [email or web address] [facility], [address] [place] [address] Dr, [address], [place], [address], 08:50:14 Referral None recorded. Procedures None recorded. Surgeries None recorded. Imaging None recorded. Medication Orders None recorded. Patient TargetsNo targets recorded. Patient Instructions Encounter Date Encounter Id Patient Instructions Last Modified By Organization Details Last Modified Time 06/02/2025 [id number] - Follow up with Dr. Clemons for [...] Crohn's. He is actively followed by his recreational sports director Lisa Clemons and under biologic treatment. Because of his biologic treatment that puts him at a risk of infection such as the recent cellulitis that he had on his leg that was quite severe. He also has various aches and pains that can also be debilitating. Not available 06/03/2025 08:49:57 Reason for Referral None Reported. Results Created Date Observation Date Name Description Value Unit Range Abnormal Flag Note LastModifiedBy Organization Detail LastModifiedTime 06/02/2006/02/2025 COMPL ETE BLOOD COUNT white blood cells 10.1 10*3/ uL 3.8-10 .8 normal Not Available [facility] [address] [place] [address], [address], 06/02/2025 19:26:06/02/2006/02/2025 COMPL ETE BLOOD COUNT red blood cells 5.78 10*6/ uL 4.20-5 .80 normal Not Available [facility] [address] [place] [address], [address], 06/02/2025 19:26:09 06/02/2006/02/2025 COMPL ETE BLOOD COUNT hemoglobin 18.0 g/dL 14.0-1 8.0 normal Not Available [facility] [address] [place] [address], [address], 06/02/2025 19:26:06/02/2006/02/2025 COMPL ETE BLOOD COUNT hematocrit 51.8 % 40.0-5 2.0 normal Not Available [facility] [address] [place] [address], [address], 06/02/2025 19:26:06/02/2006/02/2025 COMPL ETE BLOOD COUNT MCV 90 fL 80-100 normal Not Available [facility] [address] [place] [address], [address], 06/02/2025 19:26:06/02/20 25 06/02/2025 COMPL ETE BLOOD COUNT MCH 31 pg 26-35 normal Not Available [facility] [address] [place] [address], [address], 06/02/2025 19:26:06/02/20 25 06/02/2025 COMPL ETE BLOOD COUNT MCHC 35 g/dL 32-36 normal Not Available [facility] [address] [place] [address], [address], 06/02/2025 19:26:06/02/2006/02/2025 COMPL ETE BLOOD COUNT RDW 13.4 % 11.0-1 5.0 normal Not Available [facility] [address] [place] [address], [address], 06/02/2025 19:26:06/02/2006/02/2025 COMPL ETE BLOOD COUNT MPV 9.3 fL 6.2-10 .5 normal Not Available [facility] [address] [place] [address], [address], 06/02/2025 19:26:06/02/20 25 06/02/2025 COMPL ETE BLOOD COUNT platelet count 249 10*3/ uL 150-40 0 normal Not Available [facility] [address] [place] [address], [address], 06/02/2025 19:26:06/02/20 25 06/02/2025 COMPL ETE BLOOD COUNT neutrophil,a bsolute 5.8 10*3/ uL 1.6-8. 4 normal Not Available [facility] [address] [place] [address], [address], 06/02/2025 19:26:06/02/20 25 06/02/2025 COMPL ETE BLOOD COUNT lymphocyte,a bsolute 3.3 10*3/ uL 0.4-5. 1 normal Not Available [facility] [address] [place] [address], [address], 06/02/2025 19:26:06/02/2006/02/2025 COMPL ETE BLOOD COUNT monocyte,abs olute 0.7 10*3/ uL 0.0-1. 2 normal Not Available [facility] [address] [place] [address], [address], 06/02/2025 19:26:06/02/2006/02/2025 COMPL ETE BLOOD COUNT eosinophil,a bsolute 0.2 10*3/ uL 0.0-0. 8 normal Not Available [facility] [address] [place] [address], [address], 06/02/2025 19:26:06/02/2006/02/2025 COMPL ETE BLOOD COUNT basophil,abs olute 0.2 10*3/ uL 0.0-0. 3 normal Not Available [facility] [address] [place] [address], [address], 06/02/2025 19:26:06/02/2006/02/2025 COMPL ETE BLOOD COUNT % neutrophils 57.7 % 42.0-7 8.0 normal Not Available [facility] [address] [place] [address], [address], 06/02/2025 19:26:06/02/2006/02/2025 COMPL ETE BLOOD COUNT % lymphocytes 32.2 % 11.0-4 7.0 normal Not Available [facility] [address] [place] [address], [address], 06/02/2025 19:26:06/02/2006/02/2025 COMPL ETE BLOOD COUNT % monocytes 6.8 % 0.0-11 .0 normal Not Available [facility] [address] [place] [address], [address], 06/02/2025 19:26:09 06/02/20 25 06/02/2025 COMPL ETE BLOOD COUNT % eosinophils 1.7 % 0.0-7. 0 normal Not Available [facility] [address] [place] [address], [address], 06/02/2025 19:26:09 06/02/20 25 06/02/2025 COMPL ETE BLOOD COUNT % basophils 1.6 % 0.0-3. 0 normal Not Available [facility] [address] [place] [address], [address], 06/02/2025 19:26:06/02/2006/02/2025 COMPL ETE BLOOD COUNT nucleated red cells 0.1 % 0.0-0. 9 normal Not Available [facility] [address] [place] [address], [address], 06/02/2025 19:26:06/02/2006/02/2025 COMPL ETE BLOOD COUNT nucleated RBCs, absolute 0.01 10*3/ uL not estab. normal Not Available [facility] [address] [place] [address], [address], 06/02/2025 19:26:06/02/2006/02/2025 TSH TSH 2.440 u[IU] /mL 0.270- 4.200 normal Not Available [facility] [address] [place] [address], [address], 06/02/2025 19:33:21 06/02/2006/02/2025 COMP. METAB OLIC PANEL glucose 87 mg/dL 74-100 normal Not Available [facility] [address] [place] [address], [address], 06/02/2025 19:42:26 06/02/2006/02/2025 COMP. METAB OLIC PANEL blood urea nitrogen 11 mg/dL 6-20 normal Not Available [facility] [address] [place] [address], [address], 06/02/2025 19:42:26 06/02/20 25 06/02/2025 COMP. METAB OLIC PANEL creatinine 1.11 mg/dL 0.70-1 .20 normal Not Available [facility] [address] [place] [address], [address], 06/02/2025 19:42:26 06/02/20 25 06/02/2025 COMP. METAB OLIC PANEL BUN/creatini ne ratio 10 (calc ) 10-20 normal Not Available [facility] [address] [place] [address], [address], 06/02/2025 19:42:26 06/02/20 25 06/02/2025 COMP. METAB OLIC PANEL sodium 138 mmol/ L 136-14 5 normal Not Available [facility] [address] [place] [address], [address], 06/02/2025 19:42:26 06/02/20 25 06/02/2025 COMP. METAB OLIC PANEL potassium 4.9 mmol/ L 3.4-5. 0 normal Not Available [facility] [address] [place] [address], [address], 06/02/2025 19:42:26 06/02/20 25 06/02/2025 COMP. METAB OLIC PANEL chloride 100 mmol/ L 98-107 normal Not Available [facility] [address] [place] [address], [address], 06/02/2025 19:42:26 06/02/20 25 06/02/2025 COMP. METAB OLIC PANEL carbon dioxide 25 mmol/ L 22-31 normal Not Available [facility] [address] [place] [address], [address], 06/02/2025 19:42:26 06/02/20 25 06/02/2025 COMP. METAB OLIC PANEL anion gap 13 (calc ) 7-25 normal Not Available [facility] [address] [place] [address], [address], 06/02/2025 19:42:26 06/02/20 25 06/02/2025 COMP. METAB OLIC PANEL calcium 10.5 mg/dL 8.6-10 .2 high Not Available [facility] [address] [place] [address], [address], 06/02/2025 19:42:26 06/02/20 25 06/02/2025 COMP. METAB OLIC PANEL total protein 7.8 g/dL 6.4-8. 3 normal Not Available [facility] [address] [place] [address], [address], 06/02/2025 19:42:26 06/02/20 25 06/02/2025 COMP. METAB OLIC PANEL albumin 4.5 g/dL 3.5-5. 2 normal Not Available [facility] [address] [place] [address], [address], 06/02/2025 19:42:26 06/02/20 25 06/02/2025 COMP. METAB OLIC PANEL globulin 3.3 1.5-4. 5 normal Not Available [facility] [address] [place] [address], [address], 06/02/2025 19:42:26 06/02/20 25 06/02/2025 COMP. METAB OLIC PANEL albumin/glob ulin ratio 1.4 (calc ) 1.1-2. 5 normal Not Available [facility] [address] [place] [address], [address], 06/02/2025 19:42:26 06/02/20 25 06/02/2025 COMP. METAB OLIC PANEL bilirubin, total 0.9 mg/dL 0.1-1. 0 normal NOTE: New refer ence range . Not Available [facility] [address] [place] [address], [address], 06/02/2025 19:42:26 06/02/20 25 06/02/2025 COMP. METAB OLIC PANEL alkaline phosphatase 83 U/L 40-129 normal Not Available [facility] [address] [place], [address], 06/02/2025 19:42:26 06/02/2006/02/2025 COMP. METAB OLIC PANEL AST 57 U/L 0-40 high Not Available [facility] [address] [place], [address], 06/02/2025 19:42:26 06/02/2006/02/2025 COMP. METAB OLIC PANEL ALT 88 U/L 0-41 high Not Available [facility] [address] [place], [address], 06/02/2025 19:42:26 06/02/2006/02/2025 COMP. METAB OLIC PANEL eGFR 89 >= 60 normal NOT E New calcu latio n for GFR (CKD- EPI 2020) is formu lated witho ut race adjus tment facto rs at the recom menda tion of the Renae Blair y Found atrachel and Ameri pablo Socie ty of Nephr ology . This calcu latio n has not been valid ated in pregn ant women . For pedia tric patie nts refer to https ://dwain rock.o rg/pr ofess ional s/KDO QI/gf r_cal culat orPed Not Available [facility] [address] [place], [address], 06/02/2025 19:42:26 06/02/2006/02/2025 LIPID PROFI LE HDL cholesterol 35 mg/dL low VINNIE L RANGE FEMAL E >49 MALE >39 NOTE: NEW VINNIE L RANGE Not Available [facility] [address] [place], [address], 06/02/2025 19:42:27 06/02/2006/02/2025 LIPID PROFI LE triglyceride s 438 mg/dL 0-149 high TRIGL YCERI DE RANGE S VINNIE L: < 150 BORDE RLINE HIGH: 150 - 199 HIGH: 200 - 499 VERY HIGH: > OR = 500 Not Available [facility] [address] [place] [address], [address], 06/02/2025 19:42:27 06/02/2006/02/2025 LIPID PROFI LE cholesterol 223 mg/dL 0-199 high SHABBIR STERO L (TOTA L) RANGE S FREDY ABLE: < 200 BORDE RLINE : 200 - 239 HIGHE R RISK: > 239 Not Available [facility] [address] [place] [address], [address], 06/02/2025 19:42:27 06/02/2006/02/2025 LIPID PROFI LE LDL cholesterol - mg/dL _(ashlie c) 0-99 abnormal Trigl yceri de resul t is > 400. LDL canno t be calcu lated . LDL SHABBIR STERO L RANGE S OPTIM AL: < 100 NEAR/ ABOVE OPTIM AL: 100 - 129 BORDE RLINE HIGH: 130 - 159 HIGH: 160 - 189 VERY HIGH: > OR = 190 Not Available [facility] [address] [place] [address], [address], 06/02/2025 19:42:27 06/02/2006/02/2025 LIPID PROFI LE chol/HDL ratio (calc) 6.4 mg/dL normal NO VINNIE L RANGE ESTAB LISHE D FOR SHABBIR STERO L/HDL RATIO (CALC ULATE D). Not Available [facility] [address] [place] [address], [address], 06/02/2025 19:42:27 06/02/2006/02/2025 LIPID PROFI LE LDL, direct 137 0-99 high Not Available [facility] [address] [place] [address], [address], 06/02/2025 19:42:27 06/02/20 25 06/03/2025 ALEXANDER FIBRO SURE alexander fibrosis score -2.604 normal Not Available [facility] [address] [place] [address], [address], 06/03/2025 10:54:07 06/02/20 25 06/03/2025 ALEXANDER FIBRO SURE interpretati on SEE NOTE normal NAFLD Fibro sis Score less than -1.45 5: Consi stent with the absen ce of signi fican t fibro sis. Refer ence: Johana georges P, Jonelle RAMON, November afsaneh G, Gibson telles E, Espinoza [...] NAFLD Fibro sis Score . Not Available [facility] [address] [place] [address], [address], 06/03/2025 10:54:07 06/02/20 25 06/03/2025 ALEXANDER FIBRO SURE glucose 87 mg/dL 65-99 normal Fasti ng refer ence inter mary Not Available [facility] [address] [place] [address], [address], 06/03/2025 10:54:07 06/02/20 25 06/03/2025 ALEXANDER FIBRO SURE AST 51 U/L 10-40 high Not Available [facility] [address] [place] [address], [address], 06/03/2025 10:54:07 06/02/20 25 06/03/2025 ALEXANDER FIBRO SURE ALT 79 U/L 9-46 high Not Available [facility] [address] [place] [address], [address], 06/03/2025 10:54:07 06/02/20 25 06/03/2025 ALEXANDER FIBRO SURE platelet count 276 thous and/u L 140-40 0 normal Not Available [facility] [address] [place], [address], 06/03/2025 10:54:07 06/02/20 25 06/03/2025 ALEXANDER FIBRO SURE albumin 4.8 g/dL 3.6-5. 1 normal Not Available [facility] [address] [place], [address], 06/03/2025 10:54:07 06/02/20 25 06/03/2025 ALEXANDER FIBRO SURE calculated BMI 42.2 normal Not Available [facility] [address] [place], [address], 06/03/2025 10:54:07 06/02/20 25 06/02/2025 hemog lobin A1C, finge rstic k hemoglobin A1C % 5.3 4.0 - 5.6 Not Available [address], [place], [address], 06/02/2025 15:13:21 Result Notes None recorded. Problems Name Problem SNOMED Code Status Onset Date Resolution Date Notes Provider Name and Address Organization Details Recorded Time Crohn's disease of large bowel 8280983 Active 2014 From [employer];Pro vider: Edmar Clemons;Sta tus: Active SANDRA ACKERMAN MD [address] [place] [address], [address] , [facility] 5 15:44:17 Liver function tests outside referenc e range 203477567 Active 2014 From [employer];Pro vider: Edmar Clemons;Sta tus: Active Not Available [facility] 6 04:59:02 Metaboli c dysfunct ion-asso ciated steatohe patitis 907229874 Active 2014 From [employer];Pro vider: Edmar Clemons;Sta tus: Active SANDRA ACKERMAN MD [address] [place] [address], [address] , [facility] 5 15:44:24 Pharyngi tis 335603537 Completed 201403/17/2019 From [employer];Pro vider: Yair Matson;Statu s: Active SANDRA ACKERMAN MD [address] [place] [address], [address] , [facility] 9 10:04:33 Single major depressi ve episode, moderate Active 2015 From [employer];Pro vider: Yair Matson;Statu s: Active Not Available [facility] 6 04:59:38 Disorder of penis 22403393 Completed 201503/17/2019 From [employer];Pro vider: Yair Matson;Statu s: Active SANDRA ACKERMAN MD [address] [place] [address], [address] , [facility] 9 10:04:31 Crohn's disease of small intestin e 24978699 Active 2015 From [employer];Pro vider: Edmar Clemons;Sta tus: Active SANDRA ACKERMAN MD [address] [place] [address], [address] , [facility] 5 15:44:10 Male pattern alopecia 89291274 [facility] 5 09:56:16 Notes:: Depression Screening* Date:01/17/2016 Problem Notes None recorded. Procedures Surgical History Date Name Laterality Status Provider Name and Address Organization Details Recorded Time Colonoscopy completed Sabrina Peter [facility] 02/20/2017 15:44:08 excision of cyst completed Dez Prince [facility] 02/04/2025 09:31:13 Imaging Results None recorded. Procedure Notes None recorded. Medical Equipment None Reported. Allergies Allergen ID Allergen Name Allergen Category Reaction Reaction Severity Criticality Documentation Date Start Date Code Code System Note Provider Name and Address Organization Details Recorded Time 843854 Advil medicatio n other Not available Not available 07/28/20162014 37908 0 RxNorm React ion: BLIST ER OF SKIN; Comme nt: Creat ed By: Carmencita wheeler Date: 015 10:50 :49 AM; Not Available [facility] 6 10:02:09 568977 ibuprofen medicatio n Not available Not available Not available 08/15/2024 5640 RxNorm Rashmi Baugh [facility] 4 10:20:36 Medications Name Sig Start [...] for 28 days. active VO called to [facility], pharm. Kenneth per their request. x11 RF's. Not Available Not Available Not Available Vitals Date Recorded Body height Body mass index (BMI) Body weight Body temperature Oxygen saturation Oxygen saturation in Arterial blood by Pulse oximetry Heart rate Systolic And Diastolic Provider Name and Address Organization Details Last Updated DateTime 5 200.66 cm 42.2 kg/m2 381614. 14 g 98 [degF] 96 % 96 % 94 /min 143/75 mm[Hg] Herlinda Yunjillian [facility] 5 15:11:03 Social History Question Answer Notes LastModified by Organizat ion Details LastModified Time Tobacco Smoking Status Current Every Day [facility]/20/2017 15:43:29 How Much Tobacco Do You Chew? None Information not available 03/17/2019 What Was The Date Of Your Most Recent Tobacco Screening? 10/20/2022 [email or web address] Information not available 10/20/2022 What Is Your Current Pack Years? 10-19packyea rs Information not available 10/23/2022 At What Age Did You Start Smoking Tobacco? 15 Information not available 02/20/2017 Are You Passively Exposed To Smoke? Yes Information not available 02/20/2017 How Much Tobacco Do You Smoke? 1 PPD Information not available 11/24/2022 Has Tobacco Cessation Counseling Been Provided? Yes Information not available 03/17/2019 On What Date [...] ble 11/24/2022 09:13:52 Medical History Condition Response Skin Cancer N Allergies/Hayfever Y Autoimmune disease Y GI Problems Y Past Encounters Encounter ID Performer Location Encounter Start Date Encounter Closed Date Diagnosis/Indication Diagnosis SNOMED-CT Code Diagnosis ICD10 Code Diagnosis IMO Codes Diagnosis Note [id number] SANDRA ACKERMAN MD [facility] [address] [facility] [address] 06/02/2025 14:31:55 06/02/2025 15:59:02 Metabolic dysfunction-associate d steatotic liver disease 2951390468 K76.0 4002496 - Plan to conduct a FibroSure test to screen for liver fibrosis. - Monitor liver function and metabolic profile regularly. Adult heal th examination 117568537 Z00.00 [id number] He needs routine lab work. Acute low back pain 2788 93263 M54.50 65942207 - No specific interventi on required as the pain has eased significan tly. Crohn's di sease of small intestine 27817500 K50.00 - Follow-up with Dr. Clemons for ongoing management of Crohn's disease.- Address dietary management challenges due to conflictin g needs of Crohn's and diverticul itis. Hammer toe 749704596 M20 .41 M20.42 33448829 - Consider surgical interventi on as discussed with robotics specialist , though outcomes are uncertain. Foot callus 379415073 L8 4 918450 - Manage calluses carefully to prevent ulceration . History of cellulitis 47 9540794 Z87.2 [id number] He is currently without signs and symptoms of cellulitis in the legs. We discussed the need to monitor for this. History of skin disorder 828248761 Z87.2 [id number] He is currently without signs and symptoms of pilonidal disease. We discussed that these can be recurrent Health Concerns Section Related Observation LastModified by Organization Detai ls LastModified Time None Recorded Concern Status LastModified by Organization Details LastModified Time None Recorded Payers Encounter Date Sequence Insurance Name Policy Number Policy Lopez Covered Member ID Lopez Member ID Guarantor Name 06/02/2025 1 R [id number] Yadi Bethea Ruperto [id number] Yadi Hickey Notes Date Note Type Note Provider Name and Address Organization Details Recorded Time 06/02/2025 text/html - The patient is a [...] activity. - The patient has seen a robotics specialist who suggested surgery as a potential [...] note prior to signature. SANDRA ACKERMAN MD [address] [place] [address], [address], [facility] - [facility] 06/03/2025 08:50:19
--- OUTSIDE RECORDS SUMMARY | 2025-06-09 15:18 | XMS_ITS | Clinical Summary ---
Author Organization [employer] ([place], [place], [place], [place]) Address [address] [place] [address] Care Team Providers Care Rn Trauma Name Role Phone Unavailable Primary Care Provider Unavailabl e Social History Tobacco Use Types Packs/Day Years Used Date Smoking Tobacco: Never Assessed Sex and Gender Information Value Date Recorded Sex Assigned at Not on file Legal Sex Male 3:17 PM CDT Gender Identity Not on file Sexual Orientation Not on file Plan of Treatment Not on file Insurance [facility]
--- OUTSIDE RECORDS SUMMARY | 2025-06-09 15:18 | XMS_ITS | Referral Summary ---
Author Organization [employer] ([place], [place], [place], [place]) Address [address] [place] [address] Care Team Providers Care Leno Sewer Name Role Phone Unavailable Primary Care Provider Unavailabl e Social History Tobacco Use Types Packs/Day Years Used Date Smoking Tobacco: Never Assessed Sex and Gender Information Value Date Recorded Sex Assigned at Not on file Legal Sex Male 3:17 PM CDT Gender Identity Not on file Sexual Orientation Not on file Plan of Treatment Not on file Insurance [facility]
[2025-06-09 16:32] LABS: Hematocrit 50.5 % (42.0-52.0); Hemoglobin 17.2 g/dL (14.1-18.0); Immature Granulocytes % 1.1 %; Mean Corpuscular HGB Conc 34.1 g/dL (31.8-35.4); Mean Corpuscular Hemoglobin 31.0 pg (27.0-31.2); Mean Corpuscular Volume 91.2 fl (80-94); Nucleated Red Blood Cells % 0 %; Platelet Count 245 K/mm3 (142-424); Red Blood Count 5.54 M/mm3 (4.60-6.20); Red Cell Distribution Width-SD 42.7 fL; White Blood Count 8.7 K/mm3 (4.8-10.8)
[2025-06-09 17:25] LABS: Alanine Aminotransferase 97 U/L (12-78); Albumin Level 4.2 g/dl (3.5-5.0); Albumin/Globulin Ratio 1.6 (1.1-1.8); Alkaline Phosphatase 86 U/L (38-126); Anion Gap 14.7 mEq/L (5-15); Aspartate Amino Transferase 59 U/L (17-59); Bilirubin,Total 1.4 mg/dl (0.2-1.3); Blood Urea Nitrogen 7 mg/dl (9-20); Calcium 9.6 mg/dl (8.4-10.2); Carbon Dioxide 25 mmol/L (22.0-30.0); Chloride 102 mmol/L (98-107); Creatinine,Serum 0.90 mg/dl (0.66-1.25); Estimated Glomerular Filt Rate 97 ml/min (>60); GFR (African American) 118 ML/MIN (>60); Globulin 2.6 g/dL (1.3-3.2); Glucose 53 mg/dl (74-100); Potassium 4.7 mmoL/L (3.5-5.1); Sodium 137 mmol/L (136-145); Total Protein,Serum 6.8 g/dl (6.3-8.2)
[2025-06-09 17:31] LABS: C-Reactive Protein 1.6 mg/L (0-4)
== END 2025-06-09 23:59 | disposition home or self-care (01) ==
LOC: LAB 15:16
PROVIDERS: PCP Family Medicine; Visit Provider Internal Medicine Gastroenterology
DX: K74.69 Other cirrhosis of liver (principal); R14.0 Abdominal distension (gaseous); R19.7 Diarrhea, unspecified; B19.20 Unspecified viral hepatitis C without hepatic coma; Z87.19 Personal history of other diseases of the digestive system
CPT/HCPCS: 36415; 80053; 80145; 82397; 85025; 85651; 86140